=== PATIENT | female | born 1970 | race Asian ===

== ENCOUNTER 2020-09-09 07:09 | Emergency (ER) | payer OTHER ==
[~2020-09-09] VITALS: Ht 152.4 cm; Wt 63.5 kg
--- NOTE | 2020-09-09 07:13 | Emergency Room Report ---
History of Present Illness General Chief Complaint: To Be Triaged Source: Patient Present Illness HPI 49-year-old Maltese female with PMHx of DM, HTN presents to the ER with complaint of high blood pressure. She took her BP this morning at found a systolic BP of 180 so wanted to get evaluated in the ER. States she saw her bass fisher yesterday who told her that "everything was fine". Takes losartan 50 mg po daily and is compliant. Also has complains of intermittent nose bleed since this morning. Bleeding stopped before arrival with direct compression. She is not anticoagulated. Denies headache, vision changes, aphasia, slurred speech, weakness, chest pain, shortness of breath, hemoptysis, fever, abdominal pain, back pain, melena, hematochezia, hematuria The patient's symptoms were gradual onset, severity was moderate, duration since 1 day. Quality: Dizzy Past medical history: Diabetes, hypertension Past surgical history: Denies Smoking: Denies Alcohol use: Denies Drug use: Denies Review of systems: CONST: No fevers or chills, No night sweats PULMONARY: No productive cough, No shortness of breath CARDIAC: No chest pain, No palpitations GI: No vomiting, No diarrhea , No melena_or_BRBPR : No dysuria, No hematuria, No discharge NEURO: No new_focal_weakness_or_numbness, No confusion, No vision changes 14 point Review of Systems is otherwise negative except per HPI Physical Exam: GENERAL: Awake_alert_ nontoxic, no acute distress Spo2 100% on RA -normal EYES: Extraocular muscles are intact. Conjunctivae clear. Lids without swelling. No nystagmus ENT: No epistaxis. No nasal septal hematoma. External nose and ear normal_in_appearance. Oropharynx clear. Head_atraumatic, Moist_oral_mucosa NECK: No JVD. No meningismus. No thyromegaly. Supple. Trachea midline RESP: Normal respiratory effort. Symmetric rise. No stridor. Clear_to_auscultation_No_rales_No_wheezes CARDIAC: Regular rate and regular rhytm. No_significant pedal edema. Pulses are equal and symmetric in the bilateral upper and lower extremity ABDOMEN: Soft. Nondistended. Nontender_No_rebound_or_guarding. No pulsatile mass. Nonperitoneal. Negative Gonzalez sign. MSK: Normal muscle tone, without rigidity. Extremities without asymmetric deformity or swelling. SKIN: Warm and dry. No visible cyanosis or pallor NEUROLOGIC: Alert, oriented x3. Motor_and_sensation_grossly_intact. No truncal ataxia. Gait_normal Psych: Normal mood and affect, normal judgment and insight - COORDINATION OF CARE Case was discussed with: Patient , Patient's Family Any labs and imaging that were ordered were interpreted as part of the medical decision making: Medical Decision Making/Plan: Differential diagnosis includes essential hypertension, malignant hypertension, hypertensive emergency, end-organ damage (such as renal failure, cardiac ischemia, pulmonary edema, hypertensive encephalopathy, intracranial hemorrhage, among others), medication noncompliance, among others. Patient is non toxic and well appearing. She is alert and oriented, no neuro deficits, no severe headache, no evidence of hypertensive encephalopathy or intracranial bleeding. No volume overload, chest pain, or shortness of breath, no evidence of cardiac ischemia or CHF. Systolic blood pressures in the 180s. Abdominal examination is benign. Nonperitoneal. No pulsatile mass. No persistent epistaxis. On history and exam and labs, the patient exhibits no features of end-organ damage. They have no no chest pain, shortness of breath, or evidence of volume overload. The patient was given a new prescription for amlodipine and appears to be stable for discharge home, and blood pressure recheck with their PMD in 1-2 days as instructed. Allergies: Coded Allergies: No Known Allergies (Unverified , 09/09/20) Physical Exam Sp02 EP Interpretation: reviewed, normal Medical Decision Making Diagnostic Impression: Primary Impression: Hypertension Additional Impression: Epistaxis EKG Diagnostic Results Troponin ordered: Yes When was troponin ordered?: Sep 09, 2020 T[facility] Hiltonibe [place]ur 12-lead EKG (interpreted by me) Time: 732 Indication: Rhythm analysis Tracing visualized and Interpreted by me. Rhythm: Normal sinus rhythm Rate: 80 bpm QTc: 456 Morphology: No_significant_ST_elevations_or_depressions, No STEMI Impression: Normal_sinus_rhythm_without_significant_abnormality Q waves septal leads Rhythm Strip Diag. Results Rhythm Strip Time: 07:38 EP Interpretation: yes Rate: 99 Rhythm: NSR, no PVC's, no ectopy Chest X-Ray Diagnostic Results Chest X-Ray Diagnostic Results : TESS Ding Chest X-Ray: Views: [ 1 ] view(s) Indication: Hypertension Findings: Normal heart size. Mediastinum normal. No infiltrate. Impression: no acute disease The X-ray(s) were independently viewed and interpreted contemporaneously Electronically signed by Macy parrish DO Reevaluation Time: 08:30 Status: improved Disposition: HOME, SELF-CARE Admit Decision Time: 09:00 Condition: Stable Scripts Acetaminophen (Tylenol) 325 Mg Tablet 325 MG ORAL Q6H PRN for Prn Pain/Headache/Temp > 101, #30 TAB 0 Refills Prov: Macy Gomez D.O. 09/09/20 Amlodipine Besylate (Norvasc) 5 Mg Tablet 5 MG ORAL DAILY for 14 Days, #14 TAB Prov: Macy Gomez D.O. 09/09/20 Patient Instructions: DASH Eating Plan, Hypertension, Nosebleed, [id number] Additional Instructions: Instructions for patient/supervisor litharge: Follow up with your physician in 1-2 days. Eat vegetables. Avoid salty and processed foods as they increase her blood pressure Use a humidifier because your nosebleeds are likely due to dry mucous membranes Follow-up with your doctor sooner if your condition requires a more timely clinical reevaluation. Return to the emergency department immediately if you feel that your condition is worsening or if you have any new or concerning symptoms. Review your discharge instructions and take any prescriptions given as instructed. [facility] PROVIDES FREE OR LOW-COST HEALTH SERVICES TO PEOPLE WHO CAN SHOW PROOF THAT THEY LIVE IN [facility]. TO FIND MORE CLINICS PARTNERED WITH THE [facility] TO PROVIDE SERVICE, PLEASE CALL . Macy Gomez D.O. Sep 09, 2020 07:13
--- NOTE | 2020-09-09 07:30 | NUR ---
ED Nurse Note: Patient walked in from home due to elevated blood pressure 187 SBP at home, reports she had nose bleed once yesterday. Patient takes Losartan 50mg daily. Patient presented calm, AAO x4, has even non labored breathing.
[2020-09-09 07:39] VITALS: BP 181/88
--- NOTE | 2020-09-09 07:45 | NUR ---
ED Nurse Note: IV line was established on left AC 20ga, blood collected sent to lab
[2020-09-09] MEDS ORDERED: NORVASC5 MG ORAL (08:02)
[2020-09-09] MEDS ORDERED: TYLENOL325 MG ORAL (08:02)
[2020-09-09 08:18] LABS: BASOPHILS % (AUTO) 1.2 % (0.0-2.0); EOSINOPHILS % (AUTO) 1.8 % (0.0-3.0); HEMATOCRIT 37.8 % (37.0-47.0); HEMOGLOBIN 13.3 G/DL (12.0-16.0); MEAN CORPUSCULAR VOLUME 83 FL (80-99); NEUTROPHILS % (AUTO) 44.9 % (45.0-75.0); PLATELET COUNT 306 K/UL (150-450); RED BLOOD COUNT 4.56 M/UL (4.20-5.40); RED CELL DISTRIBUTION WIDTH 13.9 % (11.6-14.8); WHITE BLOOD COUNT 4.8 K/UL (4.8-10.8)
[2020-09-09 08:19] LABS: ANION GAP 7 mmol/L (5-15); BLOOD UREA NITROGEN 11 mg/dL (7-18); CARBON DIOXIDE 29 MMOL/L (21-32); CHLORIDE 100 MMOL/L (98-107); CREATININE 0.7 MG/DL (0.55-1.30); POTASSIUM 4.8 MMOL/L (3.5-5.1); SODIUM 136 MMOL/L (136-145)
[2020-09-09 09:08] VITALS: BP 181/88
--- NOTE | 2020-09-09 09:09 | NUR ---
ER DISCHARGE NOTE: Patient is cleared to be discharged per ERMD, pt is aox4, on room air, with stable vital signs. pt was given dc and prescription instructions, pt was able to verbalize understanding, pt id band and iv site removed without complications. pt is able to ambulate with steady gait. pt took all belongings.
--- NOTE | 2020-09-09 15:01 | Diagnostic Imaging Report ---
Indication: Cough Technique: One view of the chest Comparison: none Findings: Lungs and pleural spaces are clear. Heart size is normal. Impression: No acute process
== END 2020-09-09 09:09 | disposition home or self-care (01) ==
LOC: EMR 07:29
DX: I10 Essential (primary) hypertension (principal); R04.0 Epistaxis; E11.9 Type 2 diabetes mellitus without complications; Z79.899 Other long term (current) drug therapy
CPT/HCPCS: 36415; 71045; 80048; 85025; 93005; Z7502; 99284